=== PATIENT | male | born 1930 | race Caucasian/White ===

== ENCOUNTER 2016-03-11 13:22 | Outpatient (CLI) | payer MEDICARE, OTHER | END 2016-03-11 13:23 | disposition home or self-care (01) | DX: J84.10 Pulmonary fibrosis, unspecified (principal) ==

== ENCOUNTER 2017-07-02 08:41 | Emergency (ER) | payer MEDICARE, OTHER ==
[2017-07-02] MEDS ORDERED: DEXAMETHASONE 10 MG/ML VIAL PO STA (09:10)
--- NOTE | 2017-07-02 09:12 | ED Physician Documentation ---
History of Present Illness - Stated complaint Stated Complaint: Allergic Rx - Chief complaint Chief Complaint: Allergic Rx - History obtained from History obtained from: Patient - History of Present Illness Timing: Last night - Additonal information Additional information: 87-year-old male who is on lisinopril has developed some swelling of his left lower lip and feels that his airway is swollen. He feels it if he leans his head back that his airway will collapse. This began on him last night and he went into see his primary care doctor this morning and was sent to the hospital for treatment. He has been having a problem with sciatica in the right side and the physical therapist has deferred him back to his primary. Review of Systems Constitutional: denies: Fever Eyes: denies: Decreased vision Ears: denies: Ear pain Nose: denies: Congestion Throat: reports: Sore throat Cardiac: denies: Chest pain / pressure, Palpitations Respiratory: reports: Dyspnea. denies: Cough, Wheezing GI: denies: Abdominal Pain, Nausea, Vomiting : denies: Dysuria, Frequency Skin: denies: Rash Musculoskeletal: reports: Back pain, Extremity pain. denies: Neck pain Neurologic: denies: Generalized weakness, Focal weakness PD PAST MEDICAL HISTORY - Past Medical History Cardiovascular: Hypertension Respiratory: Other Endocrine/Autoimmune: None : None Psych: None Musculoskeletal: Gout Derm: None - Past Surgical History Past Surgical History: Yes - Present Medications Home Medications: Ambulatory Orders Medication Instructions Recorded Confirmed Hydrochlorothiazide 25 mg PO DAILY 09/23/14 09/25/14 Colchicine 0.6 mg PO [id number] 09/25/14 09/25/14 Lisinopril 40 mg PO DAILY 09/25/14 09/25/14 Sertraline HCl 50 mg PO DAILY 09/27/14 09/27/14 - Allergies Allergies/Adverse Reactions: Allergies Allergy/AdvReac Type Severity Reaction Status Date / Time No Known Drug Allergies Allergy Verified 06/25/13 09:35 - Social History Does the pt smoke?: No Smoking Status: Never smoker Does the pt drink ETOH?: No Does the pt have substance abuse?: No - Immunizations Immunizations are current?: Yes - POLST Patient has POLST: No PD ED PE NORMAL - Vitals Vital signs reviewed: Yes (hypertensive ) - General General: Alert and oriented X 3, No acute distress, Well developed/nourished - HEENT HEENT: Atraumatic, PERRL, EOMI, Ears normal, Other (There is swelling to the lower lip on the left side that is present but mild. There is swelling to the uvula that is mild but present. The tongue is not swollen ) - Neck Neck: Supple, no meningeal sign, No bony TTP - Cardiac Cardiac: RRR, No murmur - Respiratory Respiratory: No respiratory distress, Clear bilaterally - Abdomen Abdomen: Soft, Non tender - Back Back: No CVA TTP, Other (There is some tenderness to the right lower lumbar paraspinous muscles and this extends into the sciatic notch. ) - Derm Derm: Normal color, Warm and dry, No rash - Extremities Extremities: No deformity, No edema - Neuro Neuro: No motor deficit, No sensory deficit Eye Opening: Spontaneous Motor: Obeys Commands Verbal: Oriented GCS Score: 15 - Psych Psych: Normal mood, Normal affect Results - Vitals Vitals: Vital Signs - 24 hr 07/02/17 08:45 Temperature 36.3 C L Heart Rate 69 Respiratory 17 Rate Blood Pressure 184/78 H O2 Saturation 100 Oxygen O2 Source Room air PD MEDICAL DECISION MAKING - ED course Complexity details: considered differential, d/w patient ED course: 87-year-old male with some mild lower lip swelling and uvular swelling has some improvement at 2 hours with the use of 10 mg of dexamethasone. I have asked the patient to take Benadryl 25 mg every 6 hours for the next 2 days and to stop taking his lisinopril. He will follow-up with Talita Chandler next week for his back and I have asked him to follow-up with her about his blood pressure then as well. He will continue taking the hydrochlorothiazide. Departure - Departure Disposition: 01 Home, Self Care Clinical Impression: Angio-edema Qualifiers: Encounter type: initial encounter Qualified Code(s): T78.3XXA - Angioneurotic edema, initial encounter Condition: Stable Instructions: ED Angioedema Follow-Up: Alyce Chandler PA [Primary Care Provider] - Comments: Today it appears the swelling in your throat is related to the blood pressure medication you are on. You will need to stop taking the lisinopril and follow up with your doctor about your blood pressure next week when you see her for your back.
[2017-07-02 11:32] VITALS: BP 199/96
== END 2017-07-02 11:33 | disposition home or self-care (01) ==
LOC: ED 08:41
DX: T78.3XXA Angioneurotic edema, initial encounter (principal); I10 Essential (primary) hypertension; M10.9 Gout, unspecified
CPT/HCPCS: 99283

== ENCOUNTER 2017-07-07 10:47 | Outpatient (CLI) | payer MEDICARE, OTHER ==
--- NOTE | 2017-07-07 12:13 | XRAY Report ---
THREE VIEW LUMBAR SPINE: 07/07/2017 CLINICAL INDICATION: Back pain. FINDINGS: AP, lateral, coned down views of the lumbar spine demonstrate moderate degenerative disk and facet disease. There is no evidence of compression fracture or subluxation. Vascular calcifications are noted. IMPRESSION: MODERATE DEGENERATIVE CHANGES. TD: 07/07/2017 11:39
== END 2017-07-07 10:48 | disposition home or self-care (01) ==
LOC: DI 10:47
PROVIDERS: ATTEND Physician Assistant
DX: M51.36 Other intervertebral disc degeneration, lumbar region (principal); M47.896 Other spondylosis, lumbar region
CPT/HCPCS: 72100

== ENCOUNTER 2017-07-11 07:33 | Outpatient (CLI) | payer MEDICARE, OTHER ==
--- NOTE | 2017-07-12 11:51 | MRI Report ---
EXAM: MRI LUMBAR SPINE WITHOUT CONTRAST EXAM DATE: 07/11/2017 08:18 AM. CLINICAL HISTORY: Low back pain with decreased range of motion. Twisting injury 6 weeks ago. COMPARISON: X-ray 07/07/2017. TECHNIQUE: Multiplanar, multisequence T1-weighted and fluid-sensitive sequences of the lumbar spine f rom T12 to S1 without contrast. Other: None. FINDINGS: Spinal Cord: The conus terminates at L1-L2. The conus medullaris and cauda equina are unremarkable. Alignment: No scoliosis or spondylolisthesis. Bone Marrow: Five [id number] lumbar vertebral bodies are assumed. No gross fractures or bone les ions. No bone marrow edema. Disk Levels/Facets: T12-L1: Unremarkable. L1-L2: Minimal disk bulge. Mild facet arthropathy. No stenosis. L2-L3: Minimal disk bulge. Mild bilateral facet arthropathy and ligamentum flavum thickening. No cent ral canal stenosis. Mild bilateral foraminal stenoses. L3-L4: Mild disk narrowing and bulge with small osteophytes. Moderate bilateral facet arthropathy wit h ligamentum flavum thickening. Partial effacement CSF around the nerve roots with mild central canal stenosis. Moderate bilateral foraminal stenoses. L4-L5: Disk bulge with superimposed broad-based posterocentral extrusion with caudal extension. Moder ate bilateral facet arthropathy with ligamentum flavum thickening. Small bilateral facet joint effusi ons. Severe central canal stenosis with effacement of CSF and narrowing of the thecal sac. Moderate b ilateral foraminal stenoses. L5-S1: Mild disk bulge. Mild bilateral facet arthropathy. No stenosis. Musculature: Normal. No edema or fatty atrophy. Other: Short-segment 3-cm inferior abdominal aortic aneurysm, may be saccular. IMPRESSION: 1. Severe central canal stenosis L4-L5 from broad-based posterocentral disk extrusion and moderate fa cet arthropathy. Also moderate bilateral foraminal stenoses. 2. Mild central stenosis L3-L4. 3. Multilevel degenerative disk disease and facet arthropathy. 4. 3-cm lower abdominal aortic aneurysm, short-segment and may be saccular; partially visualized. Comment: The following findings are so common in adults without low back pain that while we report th eir presence, they must be interpreted with caution and in the context of the clinical situation. (Re mona Baldwin et al, Spine 2001) Prevalence of findings in patients without low back pain: Disk degeneration (any evidence): 92% Disk desiccation/T2 signal loss: 83% Disk height loss: 56% Disk bulge: 64% Disk protrusion: 32% Annular tear/high intensity zone: 38% [facility] Referring Provider Line: [phone] SITE ID: [id number]
== END 2017-07-11 07:34 | disposition home or self-care (01) ==
LOC: DI 07:33
PROVIDERS: ATTEND Physician Assistant
DX: M54.9 Dorsalgia, unspecified (principal); R29.898 Other symptoms and signs involving the musculoskeletal system; M51.36 Other intervertebral disc degeneration, lumbar region; M51.26 Other intervertebral disc displacement, lumbar region; I71.4 Abdominal aortic aneurysm, without rupture
CPT/HCPCS: 72148

== ENCOUNTER 2017-08-11 09:04 | Outpatient (CLI) | payer MEDICARE, OTHER ==
--- NOTE | 2017-08-11 10:32 | Ultrasound Report ---
Procedure Date: 08/11/2017 Accession Number: [id number] / [id number] Procedure: US - Retroperitoneal Limited CPT Code: FULL RESULT: EXAM: Retroperitoneal Limited DATE: 08/11/2017 10:04 AM CLINICAL HISTORY: 3 CM LOWER ABDOMINAL AORTIC ANEURYSM COMPARISON: MRI 07/11/2017 TECHNIQUE: Real-time scanning was performed with static images obtained. FINDINGS: Abdominal aorta measures 2.5 cm proximally, and 2.0 cm in the midportion. There is a saccular aneurysm of the distal abdominal aorta, measuring 3.3 x 3.2 cm. There is partial thrombosis of the saccular portion of the aneurysm. The iliacs are normal in caliber. 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 [facility]
== END 2017-08-11 09:05 | disposition home or self-care (01) ==
LOC: DI 09:04
PROVIDERS: ATTEND Physician Assistant
DX: I71.4 Abdominal aortic aneurysm, without rupture (principal)
CPT/HCPCS: 76775

== ENCOUNTER 2017-11-24 14:47 | Outpatient (CLI) | payer MEDICARE, OTHER ==
--- NOTE | 2017-11-24 15:36 | XRAY Report ---
Reason: ESSENTIAL (PRIMARY) HYPERTENSION Procedure Date: 11/24/2017 Accession Number: [id number] / [id number] Procedure: XR - Chest 2 View X-Ray CPT Code: 88418 FULL RESULT: EXAM: CHEST RADIOGRAPHY EXAM DATE: 11/24/2017 02:58 PM. CLINICAL HISTORY: ESSENTIAL (PRIMARY) HYPERTENSION. COMPARISON: 03/11/2016. TECHNIQUE: 2 views. FINDINGS: Lungs/Pleura: Biapical pleural thickening. No focal opacities evident. No pleural effusion. No pneumothorax. Normal volumes. Mediastinum: Borderline heart size. Vascular calcification. Other: Postsurgical deformity right sixth posterior rib. Mild dextroscoliosis. IMPRESSION: No acute findings 2-view chest radiography, stable compared with 1 3117.. [facility]
== END 2017-11-24 14:48 | disposition home or self-care (01) ==
LOC: DI 14:47
PROVIDERS: ATTEND Physician Assistant
DX: L29.9 Pruritus, unspecified (principal); I10 Essential (primary) hypertension
CPT/HCPCS: 71046

== ENCOUNTER 2018-02-24 06:10 | Outpatient (CLI) | payer MEDICARE, OTHER ==
[2018-02-24] MEDS ORDERED: IOVERSOL 320 100 ML VIAL IVP ONE ×3 (06:34→07:22)
--- NOTE | 2018-02-24 16:55 | CT Report ---
Reason: CHRONIC KIDNEY DISEASE,STAGE 3 Procedure Date: 02/24/2018 Accession Number: [id number] / [id number] Procedure: CT - Abdomen W/ CPT Code: FULL RESULT: EXAM: CT ABDOMEN EXAM DATE: 02/24/2018 07:16 AM. CLINICAL HISTORY: Chronic kidney disease, stage 3. Extremity edema. Itching. COMPARISON: ABdomen/pelvis w/o contrast 09/23/2014 7:23 PM. TECHNIQUE: Routine helical CT imaging was performed through the abdomen. IV contrast: 90 mL Optiray 320. Enteric contrast: No. Reconstruction: Coronal and sagittal. In accordance with CT protocol optimization, one or more of the following dose reduction techniques were utilized for this exam: automated exposure control, adjustment of mA and/or KV based on patient size, or use of iterative reconstructive technique. FINDINGS: Lung Bases: Chronic fibrosis/scarring. No effusion. Severe coronary calcifications. Borderline cardiomegaly. Liver: Unremarkable. No masses. Gallbladder/Bile Ducts: Unremarkable. Spleen: Normal. Pancreas: Normal. Adrenal Glands: Normal. Kidneys: Small cysts. No suspicious masses or hydronephrosis. Peritoneal Cavity/Bowel: Colonic diverticulosis. No free fluid, free air or adenopathy. No masses or acute inflammatory process. Pelvis not included on exam. Vasculature: Chronic saccular infrarenal abdominal aortic aneurysm measures up to 34 x 30 mm in cross-section, previously 31 x 26 mm. Aneurysm extends over approximately 4 cm in length. Bones: No significant abnormality. Other: None. IMPRESSION: 1. No hydronephrosis as cause of renal insufficiency. 2. No etiology for lower elevator tender edema seen. 3. Interval enlargement of a saccular infrarenal abdominal aortic aneurysm measuring up to 3.4 x 3.0 cm, previously 3.1 x 2.6 cm. 5. Severe coronary calcifications. Borderline cardiomegaly. 6. Pulmonary scarring/fibrosis at the bases. [facility]
== END 2018-02-24 06:11 | disposition home or self-care (01) ==
LOC: DI 06:10
PROVIDERS: ATTEND Physician Assistant
DX: N18.3 Chronic kidney disease, stage 3 (moderate) (principal); I71.4 Abdominal aortic aneurysm, without rupture; I25.10 Atherosclerotic heart disease of native coronary artery without angina pectoris; J84.10 Pulmonary fibrosis, unspecified
CPT/HCPCS: 74160; Q9967

== ENCOUNTER 2019-04-05 08:44 | Outpatient (CLI) | payer MEDICARE, OTHER ==
--- NOTE | 2019-04-06 12:04 | Ultrasound Report ---
Reason: ABDOMINAL AORTIC ANEURYSM Procedure Date: 04/05/2019 Accession Number: [id number] / [id number] Procedure: US - Retroperitoneal Limited CPT Code: Final Report FULL RESULT: EXAM: AORTIC DOPPLER ULTRASOUND EXAM DATE: 04/05/2019 09:40 AM. CLINICAL HISTORY: ABDOMINAL AORTIC ANEURYSM. COMPARISON: AORTA SCREENING 08/11/2017 9:14 AM. TECHNIQUE: Real-time sonographic imaging of retroperitoneal vascular structures, including color-flow, Doppler flow and spectral analysis was performed by the network control operator. Multiple textile designs sales representative static images were saved for review. FINDINGS: Aorta: The proximal abdominal aorta measures 2.7 cm. The mid abdominal aorta measures 1.8 cm. There is a saccular aneurysm of the distal abdominal aorta measuring 4.7 x 4.2 cm, previously 3.3 x 3.2 cm. There is partial thrombosis of the saccular portion of the aneurysm. The peak systolic velocity at the aneurysm neck is 97 cm/s. Iliac Vessels: The visualized proximal common iliac arteries are normal in caliber. Other: None. IMPRESSION: Increased size of the saccular aneurysm of the distal abdominal aorta now measuring 4.7 cm. [facility]
== END 2019-04-05 08:45 | disposition home or self-care (01) ==
LOC: DI 08:44
PROVIDERS: ATTEND Registered Nurse
DX: I71.4 Abdominal aortic aneurysm, without rupture (principal)
CPT/HCPCS: 76775

== ENCOUNTER 2019-05-23 06:44 | Outpatient (CLI) | payer MEDICARE, OTHER ==
--- NOTE | 2019-05-23 13:41 | Ultrasound Report ---
Reason: LT FOOT PAIN AT NIGHT Procedure Date: 05/23/2019 Accession Number: [id number] / [id number] Procedure: US - Duplex Lwr Ext Arterial Bilat CPT Code: Final Report FULL RESULT: EXAM: BILATERAL LOWER EXTREMITY ARTERIAL DOPPLER ULTRASOUND EXAM DATE: 05/23/2019 07:57 AM. CLINICAL HISTORY: Left foot pain at night. COMPARISON: None. TECHNIQUE: Real-time sonographic vascular imaging was performed by the crew chief, utilizing color-flow, Doppler flow, and spectral analysis. Multiple surgical device sales representative static images were saved for review. FINDINGS: RIGHT LEG: LOT PORTER: PSV 92 cm/sec. Triphasic waveform. PSFA: PSV 87 cm/sec. Biphasic waveform. MSFA: PSV 94 cm/sec. Biphasic waveform. DSFA: PSV 261 cm/sec. Biphasic waveform. PFA: PSV 70 cm/sec. Biphasic waveform. POP: PSV 63 cm/sec. Biphasic waveform. HERMINIO: PSV 69 cm/sec. Biphasic waveform. ALTERNATIVE FINANCING SPECIALIST: PSV 75 cm/sec. Biphasic waveform. PER: PSV 75 cm/sec. Biphasic waveform. DPA: PSV 23 cm/sec. Biphasic waveform. LEFT LEG: LOT PORTER: PSV 129 cm/sec. Biphasic waveform. PSFA: PSV 101 cm/sec. Biphasic waveform. MSFA: PSV 104 cm/sec. Biphasic waveform. DSFA: PSV 132 cm/sec. Biphasic waveform. PFA: PSV 87 cm/sec. Biphasic waveform. POP: PSV 57 cm/sec. Biphasic waveform. HERMINIO: PSV 79 cm/sec. Biphasic waveform. ALTERNATIVE FINANCING SPECIALIST: PSV 66 cm/sec. Biphasic waveform. PER: PSV 99 cm/sec. Biphasic waveform. DPA: PSV 47 cm/sec. Biphasic waveform. Brachial Artery Systolic Pressure: Right 149/69. Left 144/54. Ankle Systolic Pressure: Right 153/57. Left: 157/38. Ankle/Arm Index: Right 1.03. Left 1.05. Scattered atherosclerotic plaquing. IMPRESSION: 1. No hemodynamically significant focal stenosis is identified. 2. Normal ABIs bilaterally. [facility]
== END 2019-05-23 06:45 | disposition home or self-care (01) ==
LOC: DI 06:44
PROVIDERS: ATTEND Nurse Practitioner Family
DX: M79.671 Pain in right foot (principal); M79.672 Pain in left foot
CPT/HCPCS: 93922; 93925

== ENCOUNTER 2019-12-30 07:05 | Outpatient (CLI) | payer MEDICARE, OTHER ==
--- NOTE | 2019-12-30 09:04 | XRAY Report ---
PROCEDURE: Lumbar Spine 2 View INDICATIONS: LOW BACK PAIN TECHNIQUE: 2 views of the lumbar spine were acquired. COMPARISON: None. FINDINGS: AP and lateral views of the lumbar spine were performed. No vertebral body height loss or interverteb ral disc space narrowing. The aorta has atherosclerotic calcifications. There is aneurysmal dilatatio n of the infrarenal aorta measuring up to 3.7 cm on the lateral view. There are multilevel degenerati ve changes with small anterior osteophytes of the lumbar vertebra. There is facet arthrosis of the lo wer lumbar spine. The sacroiliac joints are normal. IMPRESSION: 1. Degenerative changes of the lumbar spine. 2. Infrarenal abdominal aortic aneurysm measuring 3.7 cm. 3. Facet arthrosis in the lower lumbar spine. Reviewed by: Sincere Mckeon on 12/30/2019 9:03 AM PST Approved by: Sincere Mckeon on 12/30/2019 9:03 AM PST Station ID: [id number]
--- NOTE | 2019-12-30 09:22 | MRI Report ---
PROCEDURE: Lumbar Spine W/O INDICATIONS: RADICULOPATHY TECHNIQUE: Noncontrast sagittal T1 spin echo and T2 fast echo, sagittal STIR, axial T1 and T2 fast spin echo thr ough the lumbar spine. In cases with scoliosis, additional coronal T2 fast spin echo may be performe d. COMPARISON: None. FINDINGS: Image quality: Excellent. Alignment and Curvature: There is normal bony alignment. Bone Marrow: Marrow is of normal overall signal. No acute vertebral body compression fractures. Spinal Cord: Conus medullaris terminates at the L1-2 level. Visualized cord demonstrates normal sig nal and size. Paraspinous Soft Tissues: The infrarenal aorta has an aneurysm measuring 3.8 cm in maximal axial dime nsion. This is similar to x-ray of the lumbar spine performed today and also an x-ray of the lumbar s pine on 07/07/2017. L1-2: Mild diffuse disc bulge with no significant foraminal or central canal stenosis. L2-3: Mild diffuse disc bulge with mild bilateral foraminal stenosis. The central canal is patent. L3-4: Moderate diffuse disc bulging disc osteophytes cause moderate bilateral foraminal stenosis. There is ligament flavum hypertrophy. The central canal has moderate stenosis. L4-5: A diffuse disc bulge and disc osteophytes and facet hypertrophy cause moderate bilateral fora corrina stenosis. The patient is status post laminotomy on the right. The central canal has mild stenos is with ligamentum flavum hypertrophy on the left. L5-S1: No significant disc bulge. The foramina and central canal are patent. IMPRESSION: 1. Multilevel degenerative disc disease as described above. 2. Moderate central canal stenosis at L3-4. 3. Infrarenal abdominal aortic aneurysm measuring 3.8 cm, stable compared to prior x-ray on 07/07/2017 . Reviewed by: Sincere Mckeon on 12/30/2019 9:21 AM PST Approved by: Sincere Mckeon on 12/30/2019 9:21 AM PST Station ID: [id number]
== END 2019-12-30 07:06 | disposition home or self-care (01) ==
LOC: DI 07:05
PROVIDERS: ATTEND Physician Assistant
DX: I71.4 Abdominal aortic aneurysm, without rupture (principal); M48.061 Spinal stenosis, lumbar region without neurogenic claudication; M47.816 Spondylosis without myelopathy or radiculopathy, lumbar region
CPT/HCPCS: 72100; 72148

== ENCOUNTER 2020-08-25 11:04 | Outpatient (CLI) | payer MEDICARE, OTHER | END 2020-08-25 11:05 | disposition home or self-care (01) | LOC: LAB.N 11:04 | PROVIDERS: ATTEND Neurological Surgery | DX: Z01.812 Encounter for preprocedural laboratory examination (principal); Z20.822 Contact with and (suspected) exposure to COVID-19 ==

== ENCOUNTER 2020-11-21 14:35 | Outpatient (CLI) | payer MEDICARE, OTHER | END 2020-11-21 14:36 | disposition short-term general hospital (02) | LOC: EMS 14:35 | DX: R07.9 Chest pain, unspecified (principal) | CPT/HCPCS: A0425; A0427 ==

== ENCOUNTER 2021-02-16 07:22 | Outpatient (CLI) | payer MEDICARE, OTHER ==
--- NOTE | 2021-02-16 08:37 | Ultrasound Report ---
PROCEDURE: Ankle Brachial Index INDICATIONS: RIGHT FOOT PAIN TECHNIQUE: Ankle-brachial indices were obtained bilaterally and recorded. COMPARISONS: None. FINDINGS: Right: Posterior tibial artery measuring velocities of 142.5 cm/S with monophasic waveform. 64.9 and 26.9 cm/S are noted within the anterior tibial artery and dorsalis pedis with triphasic and monophasi c waveforms. Left: Posterior tibial artery and measuring velocities of 96.4 cm/S with monophasic waveforms. Small amount of plaque seen. Findings 7 and 12.8 cm/S are noted within the anterior tibial artery and dorsalis pedis with triphasi c and biphasic waveforms. Brachial pressure on the right measures 152/65 with ankle pressures of 146/70. Brachial pressure on the left measures 134/57 with ankle pressures of 146/54 Right ankle brachial index (SEVEN): 1.0 Left ankle brachial index (SEVEN): 1.0 IMPRESSION: Normal ABIs. No hemodynamically significant focal stenosis of the imaged vessels. Reviewed by: Conrado Domingo DO on 02/16/2021 7:35 AM GRAY Approved by: Conrado Domingo DO on 02/16/2021 7:35 AM [place] Station ID: [id number]
== END 2021-02-16 07:23 | disposition home or self-care (01) ==
LOC: DI 07:22
PROVIDERS: ATTEND Nurse Practitioner Family
DX: M79.672 Pain in left foot (principal); M79.671 Pain in right foot
CPT/HCPCS: 93922

== ENCOUNTER 2021-06-25 17:41 | Outpatient (CLI) | payer MEDICARE, OTHER | END 2021-06-25 17:42 | disposition critical access hospital (66) | LOC: EMS 17:41 | DX: R42 Dizziness and giddiness (principal); R53.1 Weakness | CPT/HCPCS: A0425; A0429 ==

== ENCOUNTER 2021-06-25 17:59 | Emergency (ER) | payer MEDICARE, OTHER ==
--- NOTE | 2021-06-25 18:16 | ED Physician Documentation ---
PD HPI HEAD INJURY - Stated complaint Stated Complaint: GLF/DIZZINESS - Chief complaint Chief Complaint: Trauma Hd/Nk - History obtained from History obtained from: Patient, EMS - Additional information Additional information: 89-year-old gentleman on anticoagulation became dizzy at 2 PM causing 2 falls. He is on Eliquis. He does not think he hit his head but he is not sure. He denies headache. No other focal neurologic symptoms. He was feeling well this morning. Review of Systems Ten Systems: 10 systems reviewed and negative Constitutional: reports: Reviewed and negative Nose: reports: Reviewed and negative Throat: reports: Reviewed and negative Cardiac: reports: Reviewed and negative PD PAST MEDICAL HISTORY - Past Medical History Cardiovascular: Hypertension Respiratory: Other Endocrine/Autoimmune: None : None Psych: None Musculoskeletal: Gout Derm: None - Past Surgical History Past Surgical History: Yes - Present Medications Home Medications: Ambulatory Orders Medication Instructions Recorded Confirmed hydroCHLOROthiazide 25 mg PO DAILY 09/23/14 09/25/14 [Hydrochlorothiazide] Colchicine 0.6 mg PO [id number] 09/25/14 09/25/14 Lisinopril 40 mg PO DAILY 09/25/14 09/25/14 Sertraline HCl 50 mg PO DAILY 09/27/14 09/27/14 - Allergies Allergies/Adverse Reactions: Allergies Allergy/AdvReac Type Severity Reaction Status Date / Time No Known Drug Allergies Allergy Verified 06/25/21 18:06 - Social History Does the pt smoke?: No Smoking Status: Never smoker Does the pt drink ETOH?: No Does the pt have substance abuse?: No - Immunizations Immunizations are current?: Yes - POLST Patient has POLST: No PD ED PE NORMAL - Vitals Vital signs reviewed: Yes - General General: Alert and oriented X 3, No acute distress - HEENT HEENT: PERRL, EOMI, Other (No nystagmus) - Neck Neck: Supple, no meningeal sign, No bony TTP - Cardiac Cardiac: RRR, No murmur - Respiratory Respiratory: No respiratory distress, Clear bilaterally - Abdomen Abdomen: Normal bowel sounds, Soft, Non tender - Back Back: No CVA TTP, No spinal TTP - Derm Derm: Normal color, Warm and dry - Extremities Extremities: No edema, No calf tenderness / cord - Neuro Neuro: Alert and oriented X 3, fashion model 2-12 intact, Normal speech Eye Opening: Spontaneous Motor: Obeys Commands Verbal: Oriented GCS Score: 15 Results - Vitals Vitals: Vital Signs - 24 hr 06/25/21 06/25/21 06/25/21 18:06 18:12 18:42 Temperature 37.2 C 37.2 C Heart Rate 78 78 69 Respiratory 18 18 22 Rate Blood Pressure 146/65 H 146/65 H 128/60 O2 Saturation 99 99 96 06/25/21 06/25/21 06/25/21 19:12 19:30 20:00 Temperature Heart Rate 78 71 81 Respiratory 24 21 22 Rate Blood Pressure 151/61 H 160/66 H 160/66 H O2 Saturation 98 99 97 Oxygen O2 Source Room air - EKG (time done) 1813 Rate: Rate (enter#) (74) Rhythm: NSR Converse: Normal Intervals: Normal SC Ischemia: Non specific changes - Labs Labs: Laboratory Tests 06/25/21 06/25/21 18:04 18:04 WBC 12.5 H RBC 3.65 L Hgb 12.3 L Hct 35.9 L MCV 98.4 H MCH 33.7 H MCHC 34.3 RDW 13.6 Plt Count 173 MPV 9.9 Neut # (Auto) 11.1 H Lymph # (Auto) 0.7 L Stanly # (Auto) 0.6 Eos # (Auto) 0.0 Baso # (Auto) 0.0 Absolute Nucleated RBC 0.00 Nucleated RBC % 0.0 Sodium 136 Potassium 4.2 Chloride 101 Carbon Dioxide 23 Anion Gap 12.0 BUN 35 H Creatinine 1.7 H Estimated GFR (MDRD) 38 L Glucose 156 H Calcium 8.9 Magnesium 1.8 Total Bilirubin 0.7 AST 25 ALT 23 Alkaline Phosphatase 93 Total Protein 7.2 Albumin 3.9 Globulin 3.3 Albumin/Globulin Ratio 1.2 Lipase 31 - Rads (name of study) CT of the head is without acute findings Radiology: EMP read contemporaneously PD MEDICAL DECISION MAKING - ED course ED course: 89-year-old gentleman presents with nonspecific dizziness today. He may have hit his head and a fall. CT of the head without pertinent positive findings. He was administered IV fluids with improvement in his symptoms. Departure - Departure Disposition: 01 Home, Self Care Clinical Impression: Adequate anticoagulation on anticoagulant therapy, Dizziness Condition: Good Record reviewed to determine appropriate education?: Yes Instructions: ED Dizziness [facility] Comments: Call your doctor to arrange a follow-up appointment, make the next available appointment. In the interim, return anytime if worse or if new symptoms develop.
[2021-06-25 18:20] LABS: BASOPHILS % (AUTO) 0.3 %; EOSINOPHILS % (AUTO) 0.1 %; HCT - HEMATOCRIT 35.9 % (42.0-52.0); HGB - HEMOGLOBIN 12.3 g/dL (14.0-18.0); LYMPHOCYTES # (AUTO) 0.7 10^3/uL (1.5-3.5); LYMPHOCYTES % (AUTO) 5.4 %; MEAN CORPUSCULAR HEMOGLOBIN 33.7 pg (27.0-31.0); MEAN CORPUSCULAR HGB CONC 34.3 g/dL (32.0-36.0); MEAN CORPUSCULAR VOLUME 98.4 fL (80.0-94.0); MEAN PLATELET VOLUME 9.9 fL (7.4-11.4); MONOCYTES # (AUTO) 0.6 10^3/uL (0.0-1.0); MONOCYTES % (AUTO) 4.6 %; NEUTROPHILS # (AUTO) 11.1 10^3/uL (1.5-6.6); NEUTROPHILS % (AUTO) 89.3 %; PLT - PLATELET COUNT 173 10^3/uL (130-450); RED BLOOD COUNT 3.65 10^6/uL (4.70-6.10); RED CELL DISTRIBUTION WIDTH 13.6 % (12.0-15.0); WHITE BLOOD COUNT 12.5 x10^3/uL (4.8-10.8)
[2021-06-25 18:30] LABS: ALBUMIN 3.9 g/dL (3.2-5.5); ALBUMIN/GLOBULIN RATIO 1.2 (1.0-2.2); BILIRUBIN,TOTAL 0.7 mg/dL (0.2-1.0); CALCIUM 8.9 mg/dL (8.5-10.3); CREATININE 1.7 mg/dL (0.6-1.2); MAGNESIUM 1.8 mg/dL (1.7-2.8); POTASSIUM 4.2 mmol/L (3.5-5.0); TOTAL PROTEIN 7.2 g/dL (6.7-8.2)
[2021-06-25] MEDS ORDERED: SODIUM CHLORIDE 0.9% 1,000 ML IV STA (18:39)
--- NOTE | 2021-06-25 19:14 | CT Report ---
PROCEDURE: CT brain without contrast INDICATIONS: head injury TECHNIQUE: Noncontrast 4.5 mm thick angled axial sections acquired from the foramen magnum to the vertex. For r adiation dose reduction, the following was used: automated exposure control, adjustment of mA and/or kV according to patient size. COMPARISON: None. FINDINGS: Image quality: Excellent. CSF spaces: Basal cisterns are patent. No extra-axial fluid collections. Ventricles are normal in size and shape. Brain: No midline shift. No intracranial masses or hemorrhage. Greene-white matter interface is norm al. Atrophy and white matter chronic ischemic change noted. Skull and face: Calvarium and visualized facial bones are intact, without suspicious lesions. Sinuses: Visualized sinuses and mastoids are clear. IMPRESSION: Atrophy and chronic ischemic change without acute hemorrhage or mass effect. Reviewed by: Carlton Berger MD on 06/25/2021 6:12 PM CARRIE Approved by: Carlton Berger MD on 06/25/2021 6:12 PM AKDT Station ID: [id number]
[2021-06-25 20:35] VITALS: BP 161/73
== END 2021-06-25 20:38 | disposition home or self-care (01) ==
LOC: EDBD → EDUNIT# → ED 17:59
DX: R42 Dizziness and giddiness (principal); W19.XXXA Unspecified fall, initial encounter; Z79.01 Long term (current) use of anticoagulants; I10 Essential (primary) hypertension
CPT/HCPCS: 36415; 80053; 83690; 83735; 85025; 93005; 96360; 96361; 99283

== ENCOUNTER → 2022-01-09 | Outpatient (CLI) | payer MEDICARE, OTHER | END | disposition critical access hospital (66) | LOC: EMS 08:39 | DX: R53.1 Weakness (principal); R50.9 Fever, unspecified | CPT/HCPCS: A0425; A0429 ==